=== PATIENT | female | born 1960 | race Caucasian/White ===

== ENCOUNTER 2024-02-28 07:39 | Day surgery (SDC) | payer BC ==
[~2024-02-28] VITALS: Ht 160 cm; Wt 64.9 kg
[2024-02-28] MEDS ORDERED: MIDAZOLAM HCL 2 MG/2 ML VIAL (VERSED) ONE (09:25)
[2024-02-28] MEDS ORDERED: BACITRACIN ZINC 15 GM TOPICAL OINTMENT TP ONE (09:25)
[2024-02-28] MEDS ORDERED: MIDAZOLAM HCL 2 MG/2 ML VIAL (VERSED) IVP PRN (10:15)
[2024-02-28] MEDS ORDERED: HYDROmorphone 1 MG/ML INJ. CARTRIDGE IVP PRN ×2 (10:15)
[2024-02-28] MEDS ORDERED: MEPERIDINE HCL/PF 25 MG/ML DISP.SYRIN IVP PRN (10:15)
[2024-02-28] MEDS ORDERED: LR 1,000 ML IV SCH (10:15)
[2024-02-28] MEDS ORDERED: METOCLOPRAMIDE HCL 10 MG/2 ML VIAL IVP PRN (10:15)
[2024-02-28 13:52] VITALS: O2SAT 98
[2024-02-28 18:10] VITALS: BP_SYST 113; PULSE 65; RESP 18; TEMP 98.1
== END 2024-02-28 12:37 | disposition home or self-care (01) ==
LOC: SDS 07:39 → SMU 07:41 → SDS 12:37
PROVIDERS: ATTEND Otolaryngology
DX: D37.09 Neoplasm of uncertain behavior of other specified sites of the oral cavity (principal); D10.39 Benign neoplasm of other parts of mouth; M19.90 Unspecified osteoarthritis, unspecified site; Z88.5 Allergy status to narcotic agent; Z86.711 Personal history of pulmonary embolism
CPT/HCPCS: 42104; 88304; 88341; 88342; 88361; J3490; J1100; J1885; J3465; J2405; J2704; J3010; J7120

== ENCOUNTER 2024-05-11 06:12 | Emergency (ER) | payer BC ==
[~2024-05-11] VITALS: Ht 160 cm; Wt 67.6 kg
[2024-05-11 06:16] VITALS: BP_SYST 115; PULSE 71; RESP 18; TEMP 97.4; O2SAT 98
[2024-05-11 08:19] VITALS: BP_SYST 115; PULSE 59; RESP 18; TEMP 97.2; O2SAT 96
== END 2024-05-11 08:18 | disposition home or self-care (01) ==
LOC: SED 06:12
DX: M79.18 Myalgia, other site (principal); Z88.5 Allergy status to narcotic agent
CPT/HCPCS: 93971; 99284